=== PATIENT | female | born 1990 | race Caucasian/White ===

== ENCOUNTER 2020-09-10 16:05 | Emergency (ER) | payer MEDICAID ==
[~2020-09-10] VITALS: Ht 167.6 cm; Wt 61.4 kg
[2020-09-10] MEDS ORDERED: LORazepam 1 MG tablet PO ONE (17:00)
[2020-09-10 18:32] VITALS: BP 109/70
== END 2020-09-10 18:25 | disposition home or self-care (01) ==
LOC: ER 16:06 → EEVIPCON 16:06 → ER 18:25
DX: M25.562 Pain in left knee (principal); F10.129 Alcohol abuse with intoxication, unspecified; F41.0 Panic disorder [episodic paroxysmal anxiety]; Z72.89 Other problems related to lifestyle; Y09 Assault by unspecified means; Y90.9 Presence of alcohol in blood, level not specified
CPT/HCPCS: 73564; 99283; 99284

== ENCOUNTER 2020-12-08 19:10 | Emergency (ER) | payer BC, MEDICAID ==
[~2020-12-08] VITALS: Ht 167.6 cm; Wt 65.9 kg
[2020-12-08 19:11] VITALS: BP 130/86
[2020-12-08] MEDS ORDERED: HYDROcodone/acetaminophen 5mg/325mg tablet PO ONE (19:30)
[2020-12-08] MEDS ORDERED: HYDR-3965 PO (20:25)
== END 2020-12-08 20:44 | disposition home or self-care (01) ==
LOC: ER 19:10
DX: S82.62XA Displaced fracture of lateral malleolus of left fibula, initial encounter for closed fracture (principal); Z72.89 Other problems related to lifestyle; Z79.899 Other long term (current) drug therapy; V29.9XXA Motorcycle rider (driver) (passenger) injured in unspecified traffic accident, initial encounter; Y93.89 Activity, other specified; Y92.89 Other specified places as the place of occurrence of the external cause; Y99.8 Other external cause status
CPT/HCPCS: 73610; 76705; 99284

== ENCOUNTER 2025-02-18 22:31 | Emergency (ER) | payer OTHER, MEDICAID ==
[~2025-02-18] VITALS: Ht 167.6 cm; Wt 68.2 kg
[2025-02-18 22:32] VITALS: TEMP 98
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
[2025-02-18] MEDS ORDERED: iohexol 300mg/ml 100ml inj. ONE (23:01)
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
[2025-02-19] MEDS: ondansetron/PF 4mg/2ml inj IV ONE (03:14)
[2025-02-19] MEDS: fentaNYL/PF 50MCG/1 ML 2ML syringe IV ONE (03:15)
[2025-02-19] MEDS: LIDOcaine 1% 30ml preserv. free vial IJ ONE (03:15)
[2025-02-19] MEDS: propofol 10mg/ml 20ml vial IV ONE ×2 (03:36)
[2025-02-19] MEDS: TETanus/Pertussis (Acell)/Diphther VAC/PF (Tdap-Adult) 0.5ml syringe IMVAC ONE (03:38)
[2025-02-19] MEDS: bacitracin 15gm ointment TP ONE (03:38)
[2025-02-19] MEDS: normal saline 1000ml 1,000 ML IV ONE (03:40)
--- NOTE | 2025-02-19 05:02 | ELECTROCARDIOGRAPH REPORT ---
[facility] Test Date: 2025-02-19 Test Time: 02:23:44 Pat Name: DARREN GOLDEN Department: EMERGENCY ROOM [id number] Room: Gender: F Contact Officer: : 1990 Requested By: SANGEETHA GUZMÁN Order Number: [id number] Reading MD: Dr. Stevan Noel Measurements Intervals [place] Rate: 77 P: 85 [place]: 166 QRS: 72 QRSD: 86 T: 59 QT: 396 QTc: 449 Interpretive Statements Age not entered, assumed to be 50 years old for purpose of ECG interpretation Sinus rhythm Electronically Signed On 02-21-2025 18:34:[address] Stevan Noel Please click the below link to view image of tracing.
[2025-02-19] MEDS ORDERED: CEPH-585 PO (05:24)
[2025-02-19] MEDS: ketamine 50 mg/ml 10ml vial IV ONE ×2 (05:34)
--- NOTE | 2025-02-19 06:48 | RADIOLOGY REPORT ---
CLINICAL INDICATION: pain RT. HUMERUS TECHNIQUE: AP and lateral views of the right humerus were performed. DI HUMERUS (2VWS) Comparison: None FINDINGS/IMPRESSION: No acute fracture of the right humerus. No radiopaque foreign bodies are identified in the soft tissu es.
[2025-02-19] MEDS: ceFAZolin 1gm IM kit IM ONE (07:00)
[2025-02-19 11:43] VITALS: BP 121/82; PULSE 70; RESP 14; O2SAT 99
== END 2025-02-19 11:45 | disposition home or self-care (01) ==
LOC: ER 22:31
DX: S41.012A Laceration without foreign body of left shoulder, initial encounter (principal); S08.121A Partial traumatic amputation of right ear, initial encounter; Z79.899 Other long term (current) drug therapy; Z23 Encounter for immunization; V89.2XXA Person injured in unspecified motor-vehicle accident, traffic, initial encounter; Y93.89 Activity, other specified; Y92.89 Other specified places as the place of occurrence of the external cause; Y99.8 Other external cause status
CPT/HCPCS: 10120; 12002; 70450; 71260; 72125; 73060; 74177; 90471; 90715; 93005; 96361; 96372; 96374; 99152; 99153; 99291; 99292; J0690; J2405; J2704; J3010; J3490; J7030; Q9967; 94760